=== PATIENT | male | born 1960 | race Caucasian/White ===

== ENCOUNTER 2017-04-10 11:54 | Inpatient (IN) | payer BC ==
[~2017-04-10] VITALS: Ht 175.3 cm; Wt 96.5 kg
[2017-04-10] MEDS ORDERED: RAMI5CAP35 PO (12:30)
[2017-04-10] MEDS ORDERED: METO1TAB18 PO (12:30)
[2017-04-10] MEDS ORDERED: OMEG1CAP2 PO (12:30)
[2017-04-10] MEDS ORDERED: LOVA20TA2 PO (12:30)
[2017-04-10] MEDS ORDERED: PENT400T2 PO (12:30)
[2017-04-10] MEDS ORDERED: DEXL60CA2 PO (12:30)
[2017-04-10] MEDS ORDERED: FOLI-17 PO (12:30)
[2017-04-10] MEDS ORDERED: ASPI-515 PO (12:30)
[2017-04-10] MEDS ORDERED: FENO43CA3 PO (12:30)
[2017-04-10 13:45] LABS: HEMATOCRIT 48.8 % (39.2-51.8); HEMOGLOBIN 16.6 g/dL (13.7-18.0); WHITE BLOOD COUNT 6.4 x10^3/uL (3.4-10)
[2017-04-10 13:56] LABS: BLOOD UREA NITROGEN 26 mg/dL (7-18)
[2017-04-10 14:02] LABS: ASPARTATE AMINO TRANSFERASE 20 U/L (15-37)
[2017-04-10 14:04] LABS: IS PT STATUS REG ER OR PRE ER? YES
[2017-04-10 16:06] VITALS: BP 146/89
[2017-04-10] MEDS ORDERED: ENALAPRILAT 1.25 MG/ML, 2ML IVPush PRN (18:00)
[2017-04-10] MEDS ORDERED: DOCUSATE 100 MG CAPSULE PO PRN (18:00)
[2017-04-10] MEDS ORDERED: PLEASE ENTER ALLERGIES MC SCH ×2 (18:00)
[2017-04-10] MEDS ORDERED: POLYETHYLENE GLYCOL 17 GM PACKET PO PRN (18:00)
[2017-04-10] MEDS ORDERED: hydrALAzine 20 MG/ML, 1ML IVPush PRN (18:00)
[2017-04-10] MEDS ORDERED: ONDANSETRON 2MG/ML, 2ML IVPush PRN (18:00)
[2017-04-10] MEDS ORDERED: ACETAMINOPHEN 325 MG TABLET PO PRN (18:00)
[2017-04-10] MEDS ORDERED: BISACODYL 10 MG SUPP PR PRN (18:00)
[2017-04-10] MEDS ORDERED: morphine SULFATE 10 MG/ML, 1ML IVPush PRN (18:00)
[2017-04-10] MEDS ORDERED: OXYcodone IR 5MG TABLET PO PRN (18:00)
[2017-04-10 20:05] VITALS: BP 138/89
[2017-04-10] MEDS ORDERED: LOVASTATIN 20 MG TABLET PO SCH (21:00)
[2017-04-10] MEDS: METOPROLOL TARTRATE 50 MG TABLET PO SCH (21:23)
[2017-04-10] MEDS: HEPARIN 5,000 UNITS/ML, 1ML SQ SCH (21:23)
[2017-04-10] MEDS: FISH PO SCH (21:23)
[2017-04-10] MEDS: HYDROCHLOROTHIAZIDE 12.5 MG CAPSULE PO SCH (21:24)
[2017-04-10] MEDS: PENTOXIFYLLINE 400 MG TABLET.ER PO SCH (21:24)
[2017-04-10 22:38] LABS: IS PT STATUS REG ER OR PRE ER? NO
[2017-04-10 22:42] LABS: PATH.CAST-FLAG NOT PRESENT; SPERM-FLAG NOT PRESENT; SRC-FLAG NOT PRESENT; XTAL-FLAG NOT PRESENT; YLC-FLAG NOT PRESENT
[2017-04-11 02:54] VITALS: BP 124/78
[2017-04-11 05:18] LABS: HEMATOCRIT 45.1 % (39.2-51.8); HEMOGLOBIN 15.4 g/dL (13.7-18.0); WHITE BLOOD COUNT 6.1 x10^3/uL (3.4-10)
[2017-04-11 05:55] LABS: ASPARTATE AMINO TRANSFERASE 21 U/L (15-37); BLOOD UREA NITROGEN 22 mg/dL (7-18); IS PT STATUS REG ER OR PRE ER? NO
[2017-04-11] MEDS: HEPARIN 5,000 UNITS/ML, 1ML SQ SCH ×2 (07:26→12:35)
[2017-04-11] MEDS: FISH PO SCH ×3 (07:26→15:56)
[2017-04-11 07:31] VITALS: BP 128/80
[2017-04-11] MEDS ORDERED: REGADENOSON 0.4 MG/5 ML SYRINGE ONE (08:25)
[2017-04-11] MEDS ORDERED: FENOFIBRATE 54 MG TABLET PO SCH (09:00)
[2017-04-11] MEDS ORDERED: FOLIC ACID 1 MG TABLET PO SCH (09:00)
[2017-04-11] MEDS ORDERED: ASPIRIN 81 MG TABLET EC PO SCH (09:00)
[2017-04-11] MEDS ORDERED: RAMIPRIL 2.5 MG CAPSULE PO SCH (09:00)
[2017-04-11] MEDS: HYDROCHLOROTHIAZIDE 12.5 MG CAPSULE PO SCH ×2 (09:00→12:30)
[2017-04-11] MEDS ORDERED: PANTOPROZOLE 40MG TABLET PO SCH (09:00)
[2017-04-11] MEDS: PENTOXIFYLLINE 400 MG TABLET.ER PO SCH ×2 (12:30→15:56)
[2017-04-11] MEDS: METOPROLOL TARTRATE 50 MG TABLET PO SCH (12:30)
[2017-04-11] MEDS ORDERED: METO50TA82 PO (12:33)
[2017-04-11 14:34] VITALS: BP 152/81
[2017-04-11] MEDS ORDERED: DOCU-131 PO (15:10)
== END 2017-04-11 17:19 | disposition home or self-care (01) | DRG 392 ==
LOC: ED 14:53 → EDIP 14:55 → 5SO 16:01
PROVIDERS: ADMIT Hospitalist; ATTEND Hospitalist
DX: K21.9 Gastro-esophageal reflux disease without esophagitis (principal); N17.9 Acute kidney failure, unspecified; N18.3 Chronic kidney disease, stage 3 (moderate); E78.5 Hyperlipidemia, unspecified; I12.9 Hypertensive chronic kidney disease with stage 1 through stage 4 chronic kidney disease, or unspecified chronic kidney disease; I25.10 Atherosclerotic heart disease of native coronary artery without angina pectoris; I73.9 Peripheral vascular disease, unspecified; M19.90 Unspecified osteoarthritis, unspecified site; Z90.49 Acquired absence of other specified parts of digestive tract; Z79.82 Long term (current) use of aspirin; I25.2 Old myocardial infarction; Z95.5 Presence of coronary angioplasty implant and graft
CPT/HCPCS: 36415; 71010; 78452; 80053; 80061; 81001; 83036; 83605; 83735; 83880; 84439; 84443; 84484; 85025; 93005; 93017; 93306; J1644; J2785; A9502; C9898

== ENCOUNTER → 2018-08-12 | Outpatient (CLI) | payer BC ==
[~2018-08-12] MED LIST: ASPI-515 PO; DEXL60CA2 PO; DOCU-131 PO; FENO43CA3 PO; FOLI-17 PO; LOVA20TA2 PO; METO1TAB18 PO; METO50TA82 PO; OMEG1CAP2 PO; PENT400T9 PO; RAMI5CAP35 PO
== END | disposition home or self-care (01) ==
LOC: CVU 08:37
PROVIDERS: ATTEND Internal Medicine Cardiovascular Disease
DX: I73.9 Peripheral vascular disease, unspecified (principal); I25.10 Atherosclerotic heart disease of native coronary artery without angina pectoris; I10 Essential (primary) hypertension; I25.2 Old myocardial infarction; Z95.5 Presence of coronary angioplasty implant and graft
CPT/HCPCS: 93880; 93922

== ENCOUNTER → 2020-05-02 | Outpatient (CLI) | payer BC ==
[~2020-05-02] MED LIST changes: -FENO43CA3 PO; +FENO43CA6 PO; +PENT400T12 PO; -PENT400T9 PO
== END | disposition home or self-care (01) ==
LOC: CFH 08:34
PROVIDERS: ATTEND Internal Medicine Cardiovascular Disease
DX: I35.8 Other nonrheumatic aortic valve disorders (principal); E78.5 Hyperlipidemia, unspecified; I25.2 Old myocardial infarction; I10 Essential (primary) hypertension; I42.9 Cardiomyopathy, unspecified
CPT/HCPCS: 93306